=== PATIENT | female | born 1930 | race African-American/Black ===

== ENCOUNTER 2016-10-20 06:56 | Emergency (ER) | payer OTHER, BC ==
[~2016-10-20] VITALS: Ht 165.1 cm; Wt 79.8 kg
[~2016-10-20 06:56] MED LIST: ADULT LOW DOSE81 MG PO; AMARYL4 MG PO; CENTRUM SILVER1 EAC1 PO; CIPROFLOXACIN500 M3 PO; COUMADIN; DIABETA 5MG TABL5 MG PO; DILTIAZEM 24HR240 MG PO; FLAGYL500 MG PO; GLUCOPHAGE1000 MG PO; HYDROCHLOROTHIA25 M1 PO; IRON; LIPITOR40 MG PO; LISINOPRIL2.5 MG PO; PHENERGAN 25 MG25 M1 PO; SORINE 80 MG TA80 M1 PO
[2016-10-20 07:48] LABS: URINE BLOOD 3+ (Negative); URINE COLOR RED; URINE GLUCOSE-RANDOM* TRACE (Negative); URINE KETONES NEGATIVE (Negative); URINE LEUKOCYTES-REFLEX 1+ (Negative); URINE PROTEIN (DIPSTICK) 3+ (Negative); URINE UROBILINOGEN 0.2 E.U./dl (0.2-1.0)
[2016-10-20 07:51] LABS: ICTOTEST (BILI CONFIRMATORY) Negative (Negative); URINE BILIRUBIN NEGATIVE (Negative)
[2016-10-20 07:56] LABS: HEMATOCRIT 39.8 % (37.0-47.0); HEMOGLOBIN 12.9 gm/dL (12.0-15.0); MCH 22.9 pg (26.0-34.0); MCHC 32.5 g/dL (28.0-37.0); MCV 70.4 fL (80.0-100.0); PLATELET COUNT 181 thou/uL (150-400); RBC 5.66 mil/uL (4.20-5.00); RDW 17.1 % (10.5-14.5); WBC 7.4 thou/uL (4.0-11.0)
[2016-10-20 07:58] LABS: CASTS None Seen /LPF (None Seen); CRYSTALS None Seen /LPF (None Seen); SQUAMOUS 4-10 Moderate /LPF (0-3); URINE RBC >20 Many /HPF (0-2); URINE WBC-REFLEX >25 Many /HPF (0-5)
[2016-10-20 07:58] LABS: MANUAL DIFF YES
[2016-10-20 08:10] LABS: APTT 27.4 Seconds (24.5-32.8); PROTIME 10.7 Seconds (9.3-11.4)
[2016-10-20 08:27] LABS: ABSOLUTE NEUTROPHILS 4.6 thou/uL (1.4-8.2); TOTAL CELL COUNT 100
[2016-10-20 08:29] LABS: CALCIUM 8.9 mg/dL (8.5-10.1); CREATININE 0.9 mg/dL (0.6-1.0); POTASSIUM 3.8 mmol/L (3.5-5.1)
[2016-10-20 08:30] LABS: ANISOCYTOSIS 1+; MICROCYTES 1+
[2016-10-20 08:31] LABS: HYPOCHROMASIA 1+
[2016-10-20] MEDS ORDERED: KEFLEX500 MG PO (09:13)
[2016-10-20 10:00] VITALS: BP 145/65
== END 2016-10-20 09:14 | disposition home or self-care (01) ==
LOC: ER 06:56
PROVIDERS: Emergency Medicine
DX: N39.0 Urinary tract infection, site not specified (principal); R31.9 Hematuria, unspecified; I10 Essential (primary) hypertension; E11.9 Type 2 diabetes mellitus without complications; Z90.710 Acquired absence of both cervix and uterus; Z87.891 Personal history of nicotine dependence

== ENCOUNTER 2019-04-04 17:51 | Inpatient (IN) | payer OTHER, BC ==
[~2019-04-04] VITALS: Ht 152.4 cm; Wt 75.7 kg
[~2019-04-04 17:51] MED LIST changes: +AMLODIPINE BESY10 MG PO; +JANUMET 50-1,01 EACH PO; +KEFLEX500 M1 PO; +KEFLEX500 MG PO; +VITAMIN D22000 UNIT PO; +ZESTRIL40 MG PO
[2019-04-04 18:20] VITALS: BP 177/67
[2019-04-04 18:23] LABS: URINE BILIRUBIN NEGATIVE (Negative); URINE BLOOD NEGATIVE (Negative); URINE CLARITY CLEAR; URINE COLOR YELLOW; URINE GLUCOSE-RANDOM* NEGATIVE (Negative); URINE KETONES NEGATIVE (Negative); URINE LEUKOCYTES-REFLEX NEGATIVE (Negative); URINE NITRITE-REFLEX NEGATIVE (Negative); URINE PROTEIN (DIPSTICK) NEGATIVE (Negative); URINE UROBILINOGEN 0.2 E.U./dl (0.2-1.0)
[2019-04-04 18:31] LABS: HEMATOCRIT 41.5 % (37.0-47.0); HEMOGLOBIN 13.4 gm/dL (12.0-15.0); MCH 23.3 pg (26.0-34.0); MCHC 32.3 g/dL (28.0-37.0); MCV 72.2 fL (80.0-100.0); PLATELET COUNT 215 thou/uL (150-400); RBC 5.75 mil/uL (4.20-5.00); RDW 18.4 % (10.5-14.5); WBC 6.4 thou/uL (4.0-11.0)
[2019-04-04 18:46] LABS: CALCIUM 9.8 mg/dL (8.5-10.1); POTASSIUM 3.6 mmol/L (3.5-5.1)
[2019-04-04 18:52] LABS: ALBUMIN 2.9 g/dL (3.4-5.0); TOTAL BILIRUBIN 0.7 mg/dL (<0.1-1.0)
[2019-04-04 19:21] LABS: ABSOLUTE NEUTROPHILS 4.5 thou/uL (1.4-8.2)
[2019-04-04 19:22] LABS: ANISOCYTOSIS 2+; BURR CELLS OCCASIONAL; HYPOCHROMASIA 1+; MICROCYTES 1+; OVALOCYTES 1+
--- NOTE | 2019-04-04 21:44 | NUR ---
RN FROM 5S WITH PATIENT FOR EVALUATION. DAUGHTER CALLED AND WILL BE HERE SHORTLY.
[2019-04-04 22:37] VITALS: BP 148/68
[2019-04-04 22:59] VITALS: BP 135/76
--- NOTE | 2019-04-05 00:02 | NUR ---
89 Y/O FEMALE ADMITTED THROUGH THE ED. ARRIVED AT 2300 BY CART. PT USES WALKER AT HOME, BUT IS WEAK AND UNSTEADY. PT LIVES WITH DAUGHTERS, WHO TAG TEAM HER CARE. PT HAS HX OF DEMENTIA SINCE 2013. DAUGHTERS PROVIDED HX, PT HAS INCREASINGLY BECOME LESS COMMUNICATIVE, AND MORE COMBATIVE. PT TAKES NO MEDS FOR DEMENTIA OR COMBATIVE BEHAVIOR. PT PRESENTED QUIET AND COOPERATIVE. BROUGHT TO ED BECAUSE FAMILY THOUGH THAT SHE MAY HAVE A UTI. SHE HAS BEEN TREATED FOR THIS IN THE PAST. UA WAS NEGATIVE FOR UTI. MEDICAL HX OF HTN, HYPERLIPIDEMIA, BRADYCARDIA WITH IRREGULAR HEARTBEAT. HAS BEEN TREATED IN THE LAST COUPLE OF YEARS FOR BREAST CANCER WHERE SHE HAD A LUMPECTOMY. 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 PT IS CURRENTLY RESTING QUIETLY.
[2019-04-05 02:22] VITALS: BP 135/76
--- NOTE | 2019-04-05 03:51 | NUR ---
HAS SLEPT WELL THROUGH THE NIGHT.
[2019-04-05 08:06] VITALS: BP 130/63
--- NOTE | 2019-04-05 08:33 | EKG ---
[address] [email or web address] [address] ELECTROCARDIOGRAM REPORT Name: BENCRISTIANO E Room #: 520B-B ADM IN M.R.#: [id number] Admission: 04/04/19 Attend Phys: Jack Brandon DO Discharge: Date of : 30 Report #: [id number] THIS REPORT FOR: //name// [facility] ED Test Date: 2019-04-04 Test Time: 18:57:05 Pat Name: CRISTIANO CONTRERAS Department: Room: [facility] Gender: F Song Lyricist: MARYAM : 1930 Requested By: Renee Lopez Order Number: [id number] MD: Gareth Ferraro Measurements Intervals [place] Rate: 65 P: -68 WI: 196 QRS: 69 QRSD: 102 T: 40 QT: 435 QTc: 453 Interpretive Statements Sinus or ectopic atrial rhythm Anteroseptal infarct, old Compared to ECG 07/18/2010 19:01:56 Ectopic atrial rhythm now present Sinus rhythm no longer present Myocardial infarct finding still present Electronically Signed On 04-05-2019 8:32:57 NURSE GYNECOLOGY by Gareth Ferraro [email or web address] <ELECTRONICALLY SIGNED> By: Gareth Ferraro MD 04/05/19 0832 56 56 Gareth Ferraro MD /EPI
[2019-04-05 10:47] LABS: TSH 2.141 uIU/mL (0.358-3.740)
[2019-04-05 12:38] VITALS: BP 130/68
--- NOTE | 2019-04-05 13:16 | NUR ---
SW called and left VM with [facility] to complete the intake assessement. Will follow up
[2019-04-05 15:59] VITALS: BP 130/68
--- NOTE | 2019-04-05 16:13 | NUR ---
THE PATIENT HAS BEEN QUIET TODAY BUT REFUSED TO TAKE HER AM MEDICATIONS. SHE WAS ENCOURAGED BUT CONTINUED TO DECLINE. SHE DID TAKE A FEW OF THE PILLS BUT REFUSED THE OTHER HALF. THE PATIENT UTILIZES A WHEEL CHAIR AND WEARS BRIEFS INCONTINENT. SHE CONTINUES TO ATTEMPT TO GET OUT OF HER WC AND THE PATIENT HAS BEEN ENCOURAGED TO STAY SITTED IN THE WC. THE PATIENT IS A FALL RISK AND FALL RISK PROTOCOL IS ACTIVE. THE PATIENT IS CHECKED ON EVERY 12 MIN. AND PRN. SHE IS A ONE TO TWO ASSIST. SHE DENIED PAIN AND HI/SI. THE PATIENT IS CONFUSED BUT ALERT. SHE DOES NOT FOLLOW ALONG WITH ASSESSMENT QUESTIONS. CONTINUE TO MONITOR THE PATIENT.
[2019-04-05 20:07] VITALS: BP 138/55
[2019-04-06 01:06] LABS: GLYCOHEMOGLOBIN (HGB A1C) 6.1 % (4.8-5.6)
--- NOTE | 2019-04-06 03:47 | NUR ---
ASSUMED CARE FROM DAY SHIFT PT VERY RESTLESS AND AGITTATED AND CONFUSED PT WA ABKE TO TAKE PO MEDICATIONS, BUT THEN STATRED TO GET OUT BED , PT PLACED ON BSC VOIDED SMALL AMOUNT BUT WAS INCONTINENT IN BRIEFS. PT THEN STARTED TO HIT AT STAFF, ER[facility] AD[facility] CALLED AND ZYPXEA GIVEN , PT THEN FELL ASLEEP. PT SLEPT WELL THROUGHUT FREQ CHECKS BED ALARLM REMAINS ON FOR SAFETY.WILL REPORT CHANGES OR ABNORMAL FINDINGS.
--- NOTE | 2019-04-06 09:11 | NUR ---
EVIN and Dr miranda spoke with pt 's [facility] [place] Cata [phone] yesterday. They want her to return home after d/c . Pt has had a change in PCP and ususally has a UTI with these behaviors. Family is reluctant to add any mood stabilizer meds. They also reported that she sleeps at home 98% of the time.
--- NOTE | 2019-04-06 11:14 | NUR ---
Cyril spoke with Dr miranda and he will d/c this pt today. Cyril called pt's dght and she will fruit picker machine operator this pt at 4pm. Sw reported this to nursing
[2019-04-06 11:16] VITALS: BP 161/67
[2019-04-06 13:15] VITALS: BP 161/67
--- NOTE | 2019-04-06 13:32 | NUR ---
THE PATIENT HAS BEEN LETHARGIC ALL MORNING. SHE WAS ADMINISTERED AN INJECTION DURING THE EARLY HOURS IN THE NIGHT. THE PATIENT HAS BEEN QUIET IN BED RESTING. SHE IS NOW UP IN A WC AND ALERT. HOWEVER, SHE IS CONFUSE. THE PATIENT IS INCONTINENT AND WEAR BRIEFS. SHE NEEDS ASSIST WITH ADL'S. SHE DOESNT NEED ANY HELP FEEDING HERSELF. SHE IS TO GO HOME TODAY. THE PATIENT IS DISCHARGING BACK TO HER DAUGHTER'S HOME. SHE IS ALERT. CONTINUE TO MONITOR THE PATIENT.
[2019-04-06] MEDS ORDERED: ARIMIDEX PO (14:56)
[2019-04-06] MEDS ORDERED: GLUCOPHAGE1000 MG PO (14:58)
[2019-04-06] MEDS ORDERED: COLACE 100 MG100 MG PO (14:58)
[2019-04-06] MEDS ORDERED: SYNTHROID75 MCG PO (14:59)
[2019-04-06] MEDS ORDERED: B-12500 MCG PO (15:01)
[2019-04-06 15:29] VITALS: BP 161/67
--- NOTE | 2019-04-07 22:47 | H ---
[facility] [place] [address] HISTORY AND PHYSICAL Name: CRISTIANO CONTRERAS Room #: 520B-B [facility] IN M.R.#: [id number] Admission: 04/04/19 Attend Phys: Jack Brandon DO Discharge: 04/06/19 Date of : 30 Report #: [id number] THIS REPORT FOR: //name// CC: Jack Brandon [facility] physician/PCP DATE OF SERVICE: 04/05/2019 INPATIENT PSYCHIATRIC EVALUATION ATTENDING PHYSICIAN: Jack Brandon DO. SAP SECURITY CONSULTANT: Radha Michelle APRN. REASON FOR ADMISSION: The patient came through the emergency room. Apparently, the patient has history of dementia, communicating like she normally does. On 04/03/2019, the patient became combative with family, concern for UTI which was negative. HISTORY OF PRESENT ILLNESS: This is an 89-year-old black female, obese, BMI 32.6, who is brought by family including daughter, Cata Jacobs, at [phone]. The patient has had worsening mental status x 2 days. The daughter, Cata, noticed she is not making sense, stating she needs to have a bowel movement and then not cooperating to get to the commode. This is different from her baseline. Family member states she has recurrent UTIs, which again she tested negative for in ER. The patient was brought in by EMS. At the interview with the patient, she was able to tell me that her daughter's name is Cata, by the afternoon she could not even tell me her daughter's name, so I am suspecting this is due to the dementia. PAST MEDICAL HISTORY: Hypertension; non-insulin dependent diabetes; irregular heartbeat; colitis, 07/18/2010; degenerative right hip, reportedly needs replacement; bradycardia; hypernatremia. SURGICAL HISTORY: Hysterectomy, D and C, fatty tumors removed. PSYCHIATRIC HISTORY: Dementia. VACCINATION: Unknown when she last got her tetanus shot. HOME MEDICATIONS: Keflex 500 mg p.o. b.i.d. for 14 days, sotalol 80 mg p.o. daily, aspirin 81 mg p.o. daily, atorvastatin 40 mg p.o. daily, amlodipine besylate 10 mg p.o. daily, lisinopril 40 mg p.o. daily, ergocalciferol 2000 International Units per day, sitagliptin/metformin mg tablet daily. SOCIAL HISTORY: Tobacco use in the past, multiple types over a number of years, [address] [address] HISTORY AND PHYSICAL Name: CRISTIANO CONTRERAS Room #: 520B-B [facility] IN [facility].#: [id number] Admission: 04/04/19 Attend Phys: Jack Brandon DO Discharge: 04/06/19 Date of : 30 Report #: [id number] unable to quantify exactly which year. Denies alcohol. Denies recreational drug use. REVIEW OF SYSTEMS: CONSTITUTIONAL: Denies fever, chills, unexplained weight change. EYES: Family denied problems. HENT: Family denied ear drainage, ear infections. RESPIRATORY: Family denied cough, shortness of breath. CARDIOVASCULAR: Family denies edema. GASTROINTESTINAL: Family denies vomiting or diarrhea. GENITOURINARY: Otherwise, unable to obtain. MUSCULOSKELETAL: Family reports baseline muscle weakness. SKIN: Family denies rash. NEUROLOGIC: Family denies weakness, headache or loss of consciousness. So I think it is better to say that the patient is a poor informant, otherwise unable to get a more exact review of systems. LABORATORY DATA: EKG, sinus rhythm at 65, normal axis. Sodium 141, potassium 3.6, chloride 102, bicarb 29, anion gap 10, BUN 13, creatinine 1.0, estimated GFR 63, glucose 98, lactic acid 1.8, calcium 9.8, total bili 0.7, AST 17, ALT 14, alk phos 102. Troponin less than 0.06. Total protein 8.0, albumin 2.9. CBC: White count 6.4, H and H of 13.4 and 41.5, platelet count 215. Urinalysis was negative. CBC did show some abnormalities including increased segmented neutrophil percentage, 1+ hypochromasia, 2+ anisocytosis, 1+ microcytic cells and ovalocytes, so that is concerning for hemolytic process. Chest x-ray showed cardiomegaly, no definite acute process. CT scan of the head read by the radiologist, showed atrophy, right middle cranial fossa apparent extraaxial well-defined high density mass, lipoma or dermoid. Recommended an outpatient consideration MRI without contrast. So, the decision was made to send her to Geriatric Psychiatry. PHYSICAL EXAMINATION: VITAL SIGNS: Temp 37.1, pulse 57, respirations 15, BP 130/68, O2 sat 95%. MUSCULOSKELETAL: In her wheelchair, unable to test gait. MENTAL STATUS EXAMINATION: Well-developed, obese, black female, appearing stated age. Attention limited. Concentration limited. Speech, normal rate. Thought process, linear and limited. Thought content, poverty of thought. Some psychomotor agitation. Some psychomotor retardation. Mood and affect were congruent, constricted. Memory not able to be formally tested. Insight impaired. Judgment impaired. Fund of knowledge well below average. FORMULATION: An 89-year-old black female admitted to geriatric psychiatry, concern for worsening symptoms of dementia. PLAN: At this time, continue cyanocobalamin IM and p.o., melatonin, docusate. [facility] [address] [place] [address] HISTORY AND PHYSICAL Name: CRISTIANO CONTRERAS Room #: 520B-B DIS IN M.R.#: [id number] Admission: 04/04/19 Attend Phys: Jack Brandon DO Discharge: 04/06/19 Date of : 30 Report #: [id number] I think at this moment in time, we will just try some schedule to Haldol to clear her thought content up 0.5 mg twice a day and go from there. STRENGTHS: She is insured, has family support. WEAKNESSES: Quite advanced age of 89, multiple morbidities. Time spent on interview, review of records, coordination of care is about 45 minutes. <ELECTRONICALLY SIGNED> By: Jack Brandon DO 04/07/19 2247 [id number] 1743 Jack Brandon DO /nt
--- NOTE | 2019-04-08 15:25 | D ---
[facility] [place] [address] DISCHARGE SUMMARY Name: CRISTIANO CONTRERAS Room #: 520B-B [facility] IN M.R.#: [id number] Admission: 04/04/19 Attend Phys: Jack Brandon DO Discharge: 04/06/19 Date of : 30 Report #: [id number] THIS REPORT FOR: //name// CC: Jack Brandon FAM physician/PCP DATE OF SERVICE: 04/06/2019 INPATIENT PSYCHIATRIC DISCHARGE SUMMARY ATTENDING PHYSICIAN: Jack Brandon DO. AIRCRAFT RIGGING AND CONTROLS MECHANIC: Jack Elizabeth MD. DISCHARGE DIAGNOSES: Major neurocognitive disorder, unclear exact etiologies or comorbid etiologies with behavioral disturbance, improvement. Medical comorbidities include hypertension, diabetes mellitus, severe B12 deficiency replaced, moderate protein-calorie malnutrition, physical debility, hyperlipidemia, hypothyroidism. DISCHARGE PLAN: The patient will be discharging back to her daughter, Cata whom she was living with 1 daughter, and on the weekend living with another daughter. It should be noted for reason unclear to me as I spoke to the daughter on the day prior to discharge, she called back unhappy with how our evaluation was going, but with no general specific grievance beyond that and wanting her mother to be discharged, so I elected to allow this to be a regular discharge as there was no immediate safety concerns. DISCHARGE MEDICATIONS: Anastrozole 1 mg p.o. daily, I believe that is for breast cancer prevention, docusate 100 mg p.o. b.i.d. for bowel motility, levothyroxine 75 mcg p.o. daily for hypothyroidism, cyanocobalamin 1000 mcg p.o. daily for B12 deficiency, atorvastatin 40 mg p.o. daily for hyperlipidemia, sotalol 40 mg b.i.d. for atrial fibrillation, aspirin 81 mg p.o. daily for cardiac protection, amlodipine 10 mg p.o. daily for hypertension, ergocalciferol 2000 international units p.o. daily for supplementation and Janumet mg daily, lisinopril was stopped, cephalexin was stopped this admission. DIET: Diabetic diet, 1800 calorie. ACTIVITY LEVEL: As tolerated. The patient will require 24/ supervision due to her dementia. REASON FOR ADMISSION: Apparently presented to the ER with change in mental status, I noticed her making a lot of sense, stated she needs to have a bowel movement, was not cooperating, concern for recurrent UTIs. Her PCP recently [address] [address] DISCHARGE SUMMARY Name: CRISTIANO CONTRERAS Room #: 520B-B [facility] IN ..#: [id number] Admission: 04/04/19 Attend Phys: Jack Brandon DO Discharge: 04/06/19 Date of : 30 Report #: [id number] retiredand according to the family, was calling in antibiotics when she needed them but that did not resolve things this time. . HOSPITAL COURSE: The patient was admitted to Geriatric Psychiatry Unit. She would have variable mentation by knowing her daughter's name in the morning and not knowing it in the afternoon, was clearly an advanced dementia case, given her short stay did not like much in the way of medication changes. LABORATORY DATA: Significant laboratories this admission, CBC was grossly normal. Chemistries were pretty normal except of albumin 2.9. Vitamin B12 level 185. TSH 2.141. B12 level will need followup to see if it is improving. She did get actually a couple of IM injections of B12 prior to leaving. Urinalysis was negative. MICROBIOLOGY DATA: There were two blood cultures done, which showed no growth. MENTAL STATUS EXAMINATION: At the time of discharge, temperature 36.7, pulse 74, respirations 17, BP 161/67. The patient was very somnolent, difficult to arouse, so interview was limited. Attention and concentration impaired. Speech too spontaneous. Thought process, unable to assess. Thought content, unable to asses. No self-harm behavior. Mood and affect, too sedated to assess. Insight impaired, judgment impaired. Fund of knowledge well below average. Prognosis for this patient is guarded given age of 89. Major neurocognitive disorder, multiple comorbidities. The patient will need PCP followup as she will be seeing a new PCP since her other one just left practice. <ELECTRONICALLY SIGNED> By: Jack Brandon DO 04/08/19 1525 [id number] Jack Brandon DO /nt
== END 2019-04-06 17:25 | disposition home or self-care (01) | DRG 884 ==
LOC: ER 17:51 → EROBS 22:21 → SBH 22:21
PROVIDERS: Physician Assistant; ADMIT Psychiatry & Neurology Psychiatry
DX: F01.51 Vascular dementia, unspecified severity, with behavioral disturbance (principal); E44.0 Moderate protein-calorie malnutrition; E53.8 Deficiency of other specified B group vitamins; E78.5 Hyperlipidemia, unspecified; E03.9 Hypothyroidism, unspecified; I48.91 Unspecified atrial fibrillation; E11.9 Type 2 diabetes mellitus without complications; I10 Essential (primary) hypertension; Z90.710 Acquired absence of both cervix and uterus; Z79.82 Long term (current) use of aspirin; Z79.899 Other long term (current) drug therapy; Z68.32 Body mass index [BMI] 32.0-32.9, adult; Z87.891 Personal history of nicotine dependence; Z99.3 Dependence on wheelchair
CPT/HCPCS: 10880